=== PATIENT | female | born 1970 | race Two or more races ===

== ENCOUNTER 2020-01-29 10:25 | Day surgery (SDC) | payer OTHER ==
[2020-01-28 11:04] VITALS: BMI 32.3
[2020-01-29 11:12] VITALS: TEMP 98.3
[2020-01-29] MEDS ORDERED: LIDOCAINE HCL/PF 2% SDV 5ML VIAL ONE (12:12)
[2020-01-29] MEDS ORDERED: PROPOFOL 20 ML ONE ×2 (12:12)
[2020-01-29 13:37] VITALS: PULSE 87
[2020-01-29 13:48] VITALS: BP 141/81
== END 2020-01-29 14:00 | disposition home or self-care (01) ==
LOC: FASU-ENDO 10:25
PROVIDERS: ATTEND Internal Medicine Gastroenterology
PROC: 0DJD8ZZ Inspection of Lower Intestinal Tract, Via Natural or Artificial Opening Endoscopic (ICD-10-PCS; principal; 2020-01-29 12:57)
DX: Z12.11 Encounter for screening for malignant neoplasm of colon (principal); K64.1 Second degree hemorrhoids
CPT/HCPCS: 84703